=== PATIENT | female | born 1995 | race American Indian/Alaskan Native ===

== ENCOUNTER 2017-12-07 06:22 | Emergency (ER) | payer MEDICAID ==
[2017-12-07 07:24] VITALS: BP 114/75
[2017-12-07 08:21] LABS: Basophils % (Auto) 0.1 % (0.0-1.8); Eosinophils # (Auto) 0.1 K/mm3 (0.0-0.4); Eosinophils % (Auto) 2.1 % (0.0-4.3); Hematocrit 37.5 % (30.3-42.9); Hemoglobin 12.3 gm/dl (10.1-14.3); Lymphocytes # (Auto) 0.8 K/mm3 (1.2-5.4); Lymphocytes % (Auto) 27.5 % (13.4-35.0); Mean Corpuscular HGB Conc 33 % (30-34); Mean Corpuscular Hemoglobin 27 pg (28-32); Mean Corpuscular Volume 83 fl (79-97); Monocytes # (Auto) 0.3 K/mm3 (0.0-0.8); Platelet Count 219 K/mm3 (140-440); Red Blood Count 4.51 M/mm3 (3.65-5.03); Red Cell Distribution Width 15.4 % (13.2-15.2)
[2017-12-07 08:37] LABS: BUN/Creatinine Ratio 13; Blood Urea Nitrogen 9 mg/dL (7-17); Calcium 9.2 mg/dL (8.4-10.2); Hemolysis Index 6
== END 2017-12-07 12:00 | disposition left against medical advice (07) ==
LOC: ED 06:22
DX: R10.9 Unspecified abdominal pain (principal); Z79.899 Other long term (current) drug therapy; Z53.21 Procedure and treatment not carried out due to patient leaving prior to being seen by health care provider
CPT/HCPCS: 36415; 80048; 84703; 85025; G0480; 80320

== ENCOUNTER 2019-12-19 07:31 | Emergency (ER) | payer MEDICAID ==
[2019-12-19 08:00] VITALS: BP 109/61
[2019-12-19] MEDS ORDERED: ACETAMINOPHEN 325 MG TAB PO ONE (08:01)
[2019-12-19] MEDS ORDERED: IBUPROFEN 400 MG TAB PO ONE (08:01)
--- NOTE | 2019-12-19 08:06 | Emergency Department Report ---
ED General Adult HPI - General Chief complaint: Chest Pain Stated complaint: CHEST PAIN Time Seen by Provider: 12/19/19 07:34 Source: patient, EMS ( EMS documentation not available at time of chart dictation ), RN notes reviewed Mode of arrival: Ambulatory Limitations: No Limitations - History of Present Illness Initial comments: During the entire history and physical examination, I am chaperoned by ER program clerk/registration; Tiffany Dilloneverdanielle The patient is a 24-year-old female, [id number], who is not known to myself previously, she does not have a primary care doctor, and she states that she is not . She presents to the ER with a complaint of throbbing left- sided chest wall pain, constant, present for 4 hours. The pain is throbbing and sharp, constant, increases with palpation, range of motion, decreases with rest, and "rubbing on the pain." No recent aspirin consumption, no oral contraceptive use, denies DVT and pulmonary embolism risk factors. Denies additional complaints at this time. There is no vomiting, diaphoresis, exertional shortness of breath. No recent aspirin consumption. No family history of DVT, pulmonary embolism, or cardiac disease that she is aware of. -: Gradual, hour(s) Location: chest Radiation: extremity Quality: other Consistency: other Improves with: other Worsens with: other Associated Symptoms: other - Related Data Allergies Allergy/AdvReac Type Severity Reaction Status Date / Time Penicillins Allergy Hives Verified 12/07/17 07:22 ED Review of Systems ROS: Stated complaint: CHEST PAIN Other details as noted in HPI Constitutional: denies: fever Eyes: denies: eye discharge ENT: denies: congestion Respiratory: denies: wheezing Cardiovascular: chest pain (Left-sided reproducible chest wall pain). denies: syncope Gastrointestinal: denies: nausea, vomiting, diarrhea Genitourinary: as per HPI Musculoskeletal: as per HPI, myalgia Skin: as per HPI Neurological: as per HPI Psychiatric: as per HPI Hematological/Lymphatic: as per HPI ED Past Medical Hx - Past Medical History Previous Medical History?: No - Surgical History Past Surgical History?: Yes Additional Surgical History: c/s - Social History Smoking Status: Never Smoker Substance Use Type: None ED Physical Exam - General Limitations: No Limitations General appearance: alert, in no apparent distress - Head Head exam: Present: atraumatic, normocephalic - Eye Eye exam: Present: normal appearance, EOMI. Absent: nystagmus - ENT ENT exam: Present: normal exam, normal orophraynx, mucous membranes moist, normal external ear exam - Neck Neck exam: Present: normal inspection, full ROM. Absent: tenderness, meningismus - Respiratory Respiratory exam: Present: normal lung sounds bilaterally, chest wall tenderness, other (There is reproducible left-sided chest wall tenderness. There is no redness, pus or streaking. There is no crepitus. There is no breast redness, pus or streaking. Chaperoned by ER entry clerk Tiffany Quarles). Absent: respiratory distress - Cardiovascular Cardiovascular Exam: Present: regular rate, normal rhythm, normal heart sounds. Absent: bradycardia, tachycardia, irregular rhythm, systolic murmur, diastolic murmur, rubs, gallop - GI/Abdominal GI/Abdominal exam: Present: soft, normal bowel sounds. Absent: distended, tenderness, guarding, rebound, rigid, pulsatile mass - Extremities Exam Extremities exam: Present: normal inspection, full ROM, other (2+ pulses noted in the bilateral upper and lower extremities. There is no palpable cord. negative Homans sign. Muscular compartments are soft. The pelvis is stable.). Absent: pedal edema, calf tenderness - Back Exam Back exam: Present: normal inspection. Absent: tenderness, CVA tenderness (R), CVA tenderness (L), paraspinal tenderness, vertebral tenderness - Neurological Exam Neurological exam: Present: alert, normal gait, other (There is no facial droop. The tongue is midline. Extraocular movements are intact bilaterally. There is 5 out of 5 strength in bilateral upper and lower extremities. Sensation is intact to light touch bilateral upper and lower extremities. There is a normal gait.) - Psychiatric Psychiatric exam: Present: normal affect, normal mood - Skin Skin exam: Present: warm, dry, intact, normal color. Absent: rash ED Course Vital Signs 12/19/19 07:43 Temperature 98 F Pulse Rate 84 Respiratory 16 Rate Blood Pressure 109/61 O2 Sat by Pulse 96 Oximetry ED Medical Decision Making - Lab Data Vital Signs 12/19/19 07:43 Temperature 98 F Pulse Rate 84 Respiratory 16 Rate Blood Pressure 109/61 O2 Sat by Pulse 96 Oximetry - EKG Data -: EKG Interpreted by [place] EKG shows normal: sinus rhythm, axis, intervals, QRS complexes, ST-T waves Rate: normal - EKG Data When compared to previous EKG there are: previous EKG unavailable Interpretation: normal EKG - Medical Decision Making Differential diagnosis, including but not limited to: Costochondritis Assessment and plan: 24-year-old female, [id number], with no DVT or pulmonary embolism risk factors, who is low risk by Wells criteria, perc negative, with nontraumatic reproducible left-sided chest wall pain, and unremarkable EKG. She is otherwise afebrile with reassuring vital signs, in no acute distress. Her physical examination is unremarkable, with the exception of reproducible chest wall pain. She is quite young, and does not endorse any vascular risk factors. This is most likely costochondritis. Critical care attestation.: If time is entered above; I have spent that time in minutes in the direct care of this critically ill patient, excluding procedure time. ED Disposition Clinical Impression: Chest wall pain Disposition: DC-01 TO HOME OR SELFCARE Is pt being admited?: No Does the pt Need Aspirin: No Condition: Stable Additional Instructions: Rest, avoid heavy lifting, and avoid strenuous physical activities. Participate in lifting and physical activities as tolerated. Patient may take ibuprofen [id number], 600 mg with food, every 6 hours, alternating with Tylenol, 650 mg by mouth, every 4-6 hours, as needed for pain. Recommend follow-up with a primary care doctor within the next 2 weeks. Please return to the emergency room right away with new, worsened or different symptoms, or symptoms not present on the initial emergency room evaluation. Referrals: [facility] [Provider Group] - 7-10 days [facility] [Provider Group] - 7-10 days
== END 2019-12-19 09:06 | disposition home or self-care (01) ==
LOC: ED 07:31
DX: R07.89 Other chest pain (principal)
CPT/HCPCS: 93005; 93010; 99283

== ENCOUNTER 2020-08-15 01:09 | Emergency (ER) | payer MEDICAID ==
[2020-08-15 02:48] LABS: Alanine Aminotransferase 15 units/L (7-56); Albumin 4.3 g/dL (3.9-5); Basophils % (Auto) 0.4 % (0.0-1.8); Blood Urea Nitrogen 7 mg/dL (7-17); Eosinophils % (Auto) 0.7 % (0.0-4.3); Hematocrit 36.3 % (30.3-42.9); Hemoglobin 12.3 gm/dl (10.1-14.3); Hemolysis Index 3; Lymphocytes # (Auto) 1.8 K/mm3 (1.2-5.4); Lymphocytes % (Auto) 27.7 % (13.4-35.0); Mean Corpuscular HGB Conc 34 % (30-34); Mean Corpuscular Volume 86 fl (79-97); Monocytes # (Auto) 0.5 K/mm3 (0.0-0.8); Monocytes % (Auto) 8.2 % (0.0-7.3); Platelet Count 234 K/mm3 (140-440); Red Blood Count 4.22 M/mm3 (3.65-5.03); Red Cell Distribution Width 13.7 % (13.2-15.2)
[2020-08-15 02:54] LABS: BUN/Creatinine Ratio 10
[2020-08-15 03:00] LABS: Bacteria,Urine 1+ /HPF (Negative); Bilirubin,Urine NEG (Negative); Blood,Urine LG (Negative); Color,Urine Yellow (Yellow); Mucus,Urine 3+ /HPF; Urobilinogen,Urine < 2.0 mg/dL (<2.0)
[2020-08-15 03:09] LABS: RBC,Urine > 182.0 /HPF (0.0-6.0); WBC,Urine > 182.0 /HPF (0.0-6.0)
--- NOTE | 2020-08-15 03:10 | Emergency Department Report ---
ED Abdominal Pain HPI - General Chief Complaint: Abdominal Pain Stated Complaint: ABDOMINAL/VAGINAL PAIN Time Seen by Provider: 08/15/20 02:45 Source: patient Mode of arrival: Ambulatory Limitations: No Limitations - History of Present Illness Initial Comments: 25-year-old female presents to ED with abdominal pain. Patient reports lower abdominal pain, onset 4 PM on yesterday. Patient states she has been having intermittent bilateral flank pain for "a few weeks."Patient denies any fever, nausea, vomiting, diarrhea. Patient reports some urinary frequency and dysuria. She denies any vaginal bleeding or discharge. MD Complaint: abdominal pain -: This afternoon Location: suprapubic Radiation: none Migration to: no migration Severity: moderate Quality: cramping Consistency: intermittent Improves With: nothing Worsens With: nothing Associated Symptoms: dysuria. denies: nausea, vomiting, diarrhea, fever - Related Data Previous Rx's Medication Instructions Recorded Last Taken Type Ciprofloxacin HCl [Ciprofloxacin 500 mg PO Q12HR 7 Days #14 tab 08/15/20 Unknown Rx TAB] Naproxen [Naprosyn] 500 mg PO BID #20 tablet 08/15/20 Unknown Rx traMADoL [Ultram] 50 mg PO Q6HR PRN #7 tablet 08/15/20 Unknown Rx Allergies Allergy/AdvReac Type Severity Reaction Status Date / Time Penicillins Allergy Hives Verified 12/07/17 07:22 ED Review of Systems ROS: Stated complaint: ABDOMINAL/VAGINAL PAIN Other details as noted in HPI Comment: All other systems reviewed and negative Constitutional: denies: fever Gastrointestinal: abdominal pain. denies: nausea, vomiting, diarrhea Genitourinary: dysuria, frequency. denies: hematuria, discharge Musculoskeletal: back pain ED Past Medical Hx - Past Medical History Previous Medical History?: No - Surgical History Past Surgical History?: Yes Additional Surgical History: c/s - Social History Smoking Status: Former Smoker Substance Use Type: Alcohol - Medications Home Medications: Home Medications Medication Instructions Recorded Confirmed Last Taken Type Ciprofloxacin HCl [Ciprofloxacin 500 mg PO Q12HR 7 Days #14 tab 08/15/20 Unknown Rx TAB] Naproxen [Naprosyn] 500 mg PO BID #20 tablet 08/15/20 Unknown Rx traMADoL [Ultram] 50 mg PO Q6HR PRN #7 tablet 08/15/20 Unknown Rx ED Physical Exam - General Limitations: No Limitations General appearance: alert, in no apparent distress - Head Head exam: Present: atraumatic, normocephalic - Eye Eye exam: Present: normal appearance, EOMI - ENT ENT exam: Present: mucous membranes moist - Neck Neck exam: Present: normal inspection - Respiratory Respiratory exam: Present: normal lung sounds bilaterally. Absent: respiratory distress - Cardiovascular Cardiovascular Exam: Present: normal rhythm, tachycardia - GI/Abdominal GI/Abdominal exam: Present: soft, tenderness (Suprapubic). Absent: distended - Extremities Exam Extremities exam: Present: normal inspection - Back Exam Back exam: Present: CVA tenderness (R), CVA tenderness (L) - Neurological Exam Neurological exam: Present: alert, oriented X3 - Psychiatric Psychiatric exam: Present: normal affect, normal mood - Skin Skin exam: Present: warm, dry, intact, normal color ED Course Vital Signs 08/15/20 01:16 Temperature 98.1 F Pulse Rate 110 H Respiratory 20 Rate Blood Pressure 121/86 O2 Sat by Pulse 96 Oximetry ED Medical Decision Making - Lab Data Result diagrams: 08/15/20 02:07 08/15/20 02:07 - Radiology Data Radiology results: report reviewed, image reviewed - Medical Decision Making 25-year-old female presents to ED with urinary symptoms and back pain. CVA tenderness on exam. Patient afebrile, however slightly tachycardic upon arrival. WBC is normal. UA shows 1+ bacteria with WBC clumps and RBCs present. CT abdomen pelvis negative for any acute abnormalities. Will treat patient for acute pyelonephritis. IV fluids, Levaquin, and Toradol given here in the ED. Patient is feeling much better at this time. Will discharge home with prescriptions. Outpatient follow-up advised. Return precautions given. - Differential Diagnosis UTI, pyelonephritis, kidney stone Critical care attestation.: If time is entered above; I have spent that time in minutes in the direct care of this critically ill patient, excluding procedure time. ED Disposition Clinical Impression: Acute pyelonephritis Disposition: TO HOME OR SELFCARE Is pt being admited?: No Condition: Stable Instructions: Acute Pyelonephritis (ED) Prescriptions: Ciprofloxacin HCl [Ciprofloxacin TAB] 500 mg PO Q12HR 7 Days #14 tab Referrals: PRIMARY CARE, [Primary Care Provider] - 3-5 Days [facility] [Provider Group] - 3-5 Days Time of Disposition: 05:01
[2020-08-15] MEDS ORDERED: SODIUM CHLORIDE 0.9% 1000 ML 1,000 ML IV ONE (03:30)
[2020-08-15] MEDS ORDERED: KETOROLAC 30 MG/1 ML INJ IV ONE (03:30)
--- NOTE | 2020-08-15 04:11 | Cat Scan Report ---
CT ABDOMEN AND PELVIS WITHOUT CONTRAST INDICATION / CLINICAL INFORMATION: flank pain. TECHNIQUE: Axial CT images were obtained through the abdomen and pelvis without IV contrast. All CT scans at this location are performed using CT dose reduction for ALARA by means of automated exposure control. COMPARISON: None available. FINDINGS: LOWER CHEST: No significant abnormality. LIVER: No significant abnormality. GALLBLADDER: Several tiny calcified gallstones. No wall thickening or inflammation. BILE DUCTS: No significant abnormality. PANCREAS: No significant abnormality. SPLEEN: No significant abnormality. ADRENALS: No significant abnormality. RIGHT KIDNEY / URETER: No significant abnormality. LEFT KIDNEY / URETER: No significant abnormality. STOMACH / SMALL BOWEL: No significant abnormality. COLON: No significant abnormality. APPENDIX: Not visualized. PERITONEUM: No free fluid. No free air. No fluid collection. LYMPH NODES: No significant adenopathy. AORTA / ARTERIES: No significant abnormality. IVC / VEINS: No significant abnormality. URINARY BLADDER: No significant abnormality. REPRODUCTIVE ORGANS: No significant abnormality. ADDITIONAL FINDINGS: None. SKELETAL SYSTEM: Thoracolumbar fusion hardware. No acute osseous abnormality. IMPRESSION: 1. No acute process in the abdomen or pelvis. 2. No urinary tract stones or hydronephrosis. Signer Name: Rosa Lal MD Signed: 08/15/2020 4:06 AM Workstation Name: [id number]
[2020-08-15] MEDS ORDERED: levoFLOXacin 500 MG TAB PO ONE (04:57)
[2020-08-15 05:34] VITALS: BP 124/86
== END 2020-08-15 05:40 | disposition home or self-care (01) ==
LOC: ED 01:09
DX: N10 Acute pyelonephritis (principal); Z98.890 Other specified postprocedural states; Z87.891 Personal history of nicotine dependence; Z79.2 Long term (current) use of antibiotics; Z79.899 Other long term (current) drug therapy; Z88.0 Allergy status to penicillin
CPT/HCPCS: 36415; 74176; 80053; 81001; 84703; 85025; 96361; 96374; 99284; J1885; J7030

== ENCOUNTER 2020-11-20 19:21 | Emergency (ER) | payer MEDICAID ==
[2020-11-20 19:30] VITALS: BP 134/78
[2020-11-20] MEDS ORDERED: SODIUM CHLORIDE 0.9% 1000 ML 1,000 ML IV ONE ×2 (19:37)
[2020-11-20] MEDS ORDERED: FAMOTIDINE 20 MG/2 ML INJ IV ONE (19:37)
[2020-11-20] MEDS ORDERED: ACETAMINOPHEN 500 MG TAB PO ONE (19:37)
[2020-11-20] MEDS ORDERED: ONDANSETRON 4 MG/2 ML INJ IV ONE (19:37)
--- NOTE | 2020-11-20 20:02 | Event Note ---
ED Screening Note Date of service: 11/20/20 ED Screening Note: Patient is a 25-year-old -[place] female with no past medical history presents to the ED with complaint of acute onset persistent diffuse body aches and pains, nasal and sinus congestion, sore throat, severe headache, fever and chills, generalized weakness, pleuritic chest pain, persistent dry cough, nausea and vomiting and lack of appetite for the last 2 days. Patient states that no one else at home is had similar symptoms. Patient also states that the last time she had nausea and vomiting was 30 minutes prior to arrival in the ED, and that she has not been able to keep anything down. Patient denies chest pain, dizziness, syncope, dysuria, urinary frequency and urgency, vaginal bleeding, vaginal discharge, abdominal pain, change in vision or palpitations. This initial assessment/diagnostic orders/clinical plan/treatment(s) is/are s ubject to change based on patients health status, clinical progression and re- assessment by fellow clinical providers in the ED. Further treatment and workup at subsequent clinical providers discretion. Patient/guardian urged not to elope from the ED as their condition may be serious if not clinically assessed and managed. Initial orders include: CBC, CMP, UA, rapid strep, rapid influenza, chest x-ray, Tylenol, normal saline, blood cultures
[2020-11-20 20:23] LABS: Basophils % (Auto) 0.1 % (0.0-1.8); Hematocrit 35.5 % (30.3-42.9); Lymphocytes # (Auto) 0.6 K/mm3 (1.2-5.4); Lymphocytes % (Auto) 6.9 % (13.4-35.0); Mean Corpuscular HGB Conc 34 % (30-34); Mean Corpuscular Volume 87 fl (79-97); Monocytes # (Auto) 0.4 K/mm3 (0.0-0.8); Monocytes % (Auto) 5.3 % (0.0-7.3); Platelet Count 194 K/mm3 (140-440); Red Blood Count 4.06 M/mm3 (3.65-5.03); Red Cell Distribution Width 14.4 % (13.2-15.2)
[2020-11-20] MEDS ORDERED: ONDANSETRON 4 MG ODT TAB PO ONE (20:27)
[2020-11-20] MEDS ORDERED: IBUPROFEN 800 MG TAB PO ONE (20:27)
--- NOTE | 2020-11-20 20:29 | Emergency Department Report ---
ED Fever HPI - General Chief Complaint: Fever Stated Complaint: FEVER/BODYACHE/SORE THROAT PUI?: Yes Time Seen by Provider: 11/20/20 20:27 Source: patient Exam Limitations: no limitations - History of Present Illness Initial Comments: CC: "I just feel horrible." HPI: THis is a 25 yo female without significant past medical history who presents with ED Review of Systems ROS: Stated complaint: FEVER/BODYACHE/SORE THROAT Other details as noted in HPI ED Past Medical Hx - Past Medical History Previous Medical History?: No - Surgical History Past Surgical History?: Yes Hx Appendectomy: Yes Additional Surgical History: . Spine surgery. - Social History Smoking Status: Never Smoker Substance Use Type: None - Medications Home Medications: Home Medications Medication Instructions Recorded Confirmed Last Taken Type Ciprofloxacin HCl [Ciprofloxacin 500 mg PO Q12HR 7 Days #14 tab 08/15/20 Unknown Rx TAB] Naproxen [Naprosyn] 500 mg PO BID #20 tablet 08/15/20 Unknown Rx traMADoL [Ultram] 50 mg PO Q6HR PRN #7 tablet 08/15/20 Unknown Rx ED Physical Exam - General Limitations: No Limitations ED Course Vital Signs 11/20/20 19:28 Temperature 100.7 F H Pulse Rate 126 H Respiratory 20 Rate Blood Pressure 134/78 O2 Sat by Pulse 95 Oximetry ED Medical Decision Making - Lab Data Result diagrams: 11/20/20 19:55 Critical care attestation.: If time is entered above; I have spent that time in minutes in the direct care of this critically ill patient, excluding procedure time. ED Disposition Clinical Impression: Suspected COVID-19 virus infection Disposition: - TO HOME OR SELFCARE Is pt being admited?: No Does the pt Need Aspirin: No Condition: Stable Instructions: COVID-19 Referrals: YESSI JEFFRIES MD [Staff Physician] - as needed
[2020-11-20 20:47] LABS: Alanine Aminotransferase 24 units/L (7-56); Albumin 4.1 g/dL (3.9-5); BUN/Creatinine Ratio 13; Blood Urea Nitrogen 10 mg/dL (7-17); Calcium 9.3 mg/dL (8.4-10.2); Hemolysis Index 4
--- NOTE | 2020-11-20 21:00 | Emergency Department Report ---
ED Fever HPI - General Chief Complaint: Fever Stated Complaint: FEVER/BODYACHE/SORE THROAT PUI?: No Time Seen by Provider: 11/20/20 20:27 Source: patient Exam Limitations: no limitations - History of Present Illness Initial Comments: CC: "I feel horrible." HPI: THis is a 25 yo female without significant past medical history who presents with one day of symptoms: fever, body aches, headache, sore throat, chest pain, fatigue. SHe denies loss of smell or taste. No sick contacts. She does not work. She has a roommate who works in an [place]. mild chest tightness, central. Timing/Duration: constant Fever Severity/Quality: greater than 100.5 F Fever Therapy PROGRAM ARRANGER: none Associated Symptoms: cough, headache, muscle aches, sore throat, other (chest pain) ED Review of Systems ROS: Stated complaint: FEVER/BODYACHE/SORE THROAT Other details as noted in HPI Comment: All other systems reviewed and negative Constitutional: chills, fever, malaise ENT: throat pain Respiratory: cough Cardiovascular: chest pain Gastrointestinal: denies: abdominal pain, nausea, vomiting, diarrhea ED Past Medical Hx - Past Medical History Previous Medical History?: No - Surgical History Past Surgical History?: Yes Hx Appendectomy: Yes Additional Surgical History: . Spine surgery. - Social History Smoking Status: Never Smoker Substance Use Type: None - Medications Home Medications: Home Medications Medication Instructions Recorded Confirmed Last Taken Type Ciprofloxacin HCl [Ciprofloxacin 500 mg PO Q12HR 7 Days #14 tab 08/15/20 Unknown Rx TAB] Naproxen [Naprosyn] 500 mg PO BID #20 tablet 08/15/20 Unknown Rx traMADoL [Ultram] 50 mg PO Q6HR PRN #7 tablet 08/15/20 Unknown Rx ED Physical Exam - General Limitations: No Limitations General appearance: alert, in no apparent distress - Head Head exam: Present: atraumatic, normocephalic - Eye Eye exam: Present: normal appearance - ENT ENT exam: Present: mucous membranes moist - Neck Neck exam: Present: normal inspection, full ROM - Respiratory Respiratory exam: Present: normal lung sounds bilaterally. Absent: respiratory distress, wheezes, rales, rhonchi - Cardiovascular Cardiovascular Exam: Present: regular rate, normal rhythm, normal heart sounds. Absent: systolic murmur, diastolic murmur, rubs, gallop - GI/Abdominal GI/Abdominal exam: Present: soft, normal bowel sounds. Absent: distended, tenderness, guarding, rebound - Extremities Exam Extremities exam: Present: normal inspection - Neurological Exam Neurological exam: Present: alert, oriented X3 - Psychiatric Psychiatric exam: Present: normal affect, normal mood - Skin Skin exam: Present: warm, dry, intact, normal color. Absent: rash ED Course Vital Signs 11/20/20 19:28 Temperature 100.7 F H Pulse Rate 126 H Respiratory 20 Rate Blood Pressure 134/78 O2 Sat by Pulse 95 Oximetry ED Medical Decision Making - Lab Data Result diagrams: 11/20/20 19:55 11/20/20 19:55 Laboratory Results - last 24 hr 11/20/20 11/20/20 11/20/20 19:55 19:55 19:55 WBC 8.0 RBC 4.06 Hgb 12.0 Hct 35.5 MCV 87 MCH 30 MCHC 34 RDW 14.4 Plt Count 194 Lymph % (Auto) 6.9 L [place] % (Auto) 5.3 Eos % (Auto) 0.0 Baso % (Auto) 0.1 Lymph # (Auto) 0.6 L [place] # (Auto) 0.4 Eos # (Auto) 0.0 Baso # (Auto) 0.0 Seg Neutrophils % 87.7 H Seg Neutrophils # 7.1 Estimated GFR > 60 BUN/Creatinine Ratio 13 Lactic Acid Albumin/Globulin Ratio 1.4 HCG, Qual Negative 11/20/20 19:55 WBC RBC Hgb Hct MCV MCH MCHC RDW Plt Count Lymph % (Auto) [place] % (Auto) Eos % (Auto) Baso % (Auto) Lymph # (Auto) [place] # (Auto) Eos # (Auto) Baso # (Auto) Seg Neutrophils % Seg Neutrophils # Estimated GFR BUN/Creatinine Ratio Lactic Acid 1.10 Albumin/Globulin Ratio HCG, Qual - Medical Decision Making suspected COVID 19 infection, patient is nontoxic appearing, normal oxygen saturation, CBC WNL, normal lactic acid level, negative test dc'd home with verbal and written education Critical care attestation.: If time is entered above; I have spent that time in minutes in the direct care of this critically ill patient, excluding procedure time. ED Disposition Clinical Impression: Suspected COVID-19 virus infection Disposition: DC TO HOME OR SELFCARE Is pt being admited?: No Condition: Stable Instructions: COVID-19 Referrals: YESSI JEFFRIES MD [Staff Physician] - as needed
== END 2020-11-20 20:55 | disposition home or self-care (01) ==
LOC: ED 19:21
DX: R50.9 Fever, unspecified (principal); R51.9 Headache, unspecified; J02.9 Acute pharyngitis, unspecified; Z20.828 Contact with and (suspected) exposure to other viral communicable diseases; Z90.49 Acquired absence of other specified parts of digestive tract; Z98.890 Other specified postprocedural states
CPT/HCPCS: 36415; 80053; 82140; 84703; 85025; 99283; Q0162

== ENCOUNTER 2020-12-06 19:25 | Emergency (ER) | payer MEDICAID ==
[2020-12-06] MEDS ORDERED: SODIUM CHLORIDE 0.9% 1000 ML 1,000 ML IV ONE (19:52)
[2020-12-06] MEDS ORDERED: ONDANSETRON 4 MG/2 ML INJ IV ONE (19:52)
--- NOTE | 2020-12-06 19:54 | Emergency Department Report ---
Blank Doc - Documentation Documentation: 25-year-old -[place] female with past medical history of gallbladder d richard presents emerged department complaining of flareup of repetitive vomiting associated with diarrhea of unknown etiology states that the pain is in her lower abdomen and pelvic region and radiates around to the right flank but reports no no dysuria but may have a suspicion of being . This initial assessment/diagnostic orders/clinical plan/treatment(s) is/are subject to change based on patients health status, clinical progression and re- assessment by fellow clinical providers in the ED. Further treatment and workup at subsequent clinical providers discretion. Patient/guardian urged not to elope from the ED as their condition may be serious if not clinically assessed and managed. Initial orders include: labs and urine.
[2020-12-06] MEDS ORDERED: ONDANSETRON 4 MG ODT TAB PO STA (20:18)
[2020-12-06 20:26] LABS: Basophils % (Auto) 0.1 % (0.0-1.8); Eosinophils # (Auto) 0.1 K/mm3 (0.0-0.4); Eosinophils % (Auto) 1.2 % (0.0-4.3); Hematocrit 39.9 % (30.3-42.9); Hemoglobin 13.5 gm/dl (10.1-14.3); Lymphocytes # (Auto) 1.2 K/mm3 (1.2-5.4); Lymphocytes % (Auto) 18.8 % (13.4-35.0); Mean Corpuscular HGB Conc 34 % (30-34); Mean Corpuscular Volume 87 fl (79-97); Monocytes # (Auto) 0.5 K/mm3 (0.0-0.8); Monocytes % (Auto) 7.9 % (0.0-7.3); Platelet Count 318 K/mm3 (140-440); Red Blood Count 4.57 M/mm3 (3.65-5.03); Red Cell Distribution Width 13.9 % (13.2-15.2)
[2020-12-06 20:52] LABS: Alanine Aminotransferase 15 units/L (7-56); Albumin 4.9 g/dL (3.9-5); BUN/Creatinine Ratio 13; Blood Urea Nitrogen 10 mg/dL (7-17); Calcium 9.2 mg/dL (8.4-10.2); Hemolysis Index 1
[2020-12-06] MEDS ORDERED: MORPHINE 4 MG/1 ML INJ IV ONE ×2 (21:13→23:15)
--- NOTE | 2020-12-06 21:26 | Emergency Department Report ---
HPI - General Chief Complaint: Nausea/Vomiting/Diarrhea Time Seen by Provider: 12/06/20 20:54 - HPI HPI: This is a 25-year-old -[place] female presents to the emergency department with a complaint of a 4-day history of nausea, vomiting and diarrhea. The patient has also been having some lower abdominal sharp and aching abdominal pains. She denies any vaginal bleeding, vaginal discharge, dysuria, fever. She has not taken anything for her symptoms prior to presentation. The patient has a history of childhood seizures, "gallbladder problems" and has a previous history of an appendectomy, and spinal surgery. No recent travel or sick contacts at home. ED Past Medical Hx - Past Medical History Previous Medical History?: Yes Hx Seizures: Yes (x1 when 1yrs old) Additional medical history: gallbladder probs. pulmonary edema - Surgical History Past Surgical History?: Yes Hx Appendectomy: Yes Additional Surgical History: . Spine surgery. sinus - Social History Smoking Status: Never Smoker Substance Use Type: None - Medications Home Medications: Home Medications Medication Instructions Recorded Confirmed Last Taken Type Ciprofloxacin HCl [Ciprofloxacin 500 mg PO Q12HR 7 Days #14 tab 08/15/20 Unknown Rx TAB] Naproxen [Naprosyn] 500 mg PO BID #20 tablet 08/15/20 Unknown Rx traMADoL [Ultram] 50 mg PO Q6HR PRN #7 tablet 08/15/20 Unknown Rx Dicyclomine [Bentyl] 10 mg PO QID PRN #16 capsule 12/07/[address] [facility]/M-Cryst 100 mg PO Q12HR #14 capsule 12/07/20 Unknown Rx [Macrobid CAP] Ondansetron [Zofran Odt] 4 mg PO Q8HR PRN #14 tab.rapdis 12/07/20 Unknown Rx ED Review of Systems ROS: Stated complaint: NAUSEA/VOMITING Other details as noted in HPI Comment: All other systems reviewed and negative Constitutional: denies: chills, fever Eyes: denies: eye pain, vision change ENT: denies: ear pain, throat pain Respiratory: denies: cough, shortness of breath Cardiovascular: denies: chest pain, palpitations Gastrointestinal: abdominal pain, nausea, vomiting, diarrhea Genitourinary: denies: dysuria, discharge Musculoskeletal: denies: joint swelling, arthralgia Skin: denies: rash, lesions Neurological: denies: headache, weakness Physical Exam - Physical Exam Vital Signs: Vital Signs 12/06/20 19:33 Temperature 98.3 F Pulse Rate 121 H Respiratory 17 Rate Blood Pressure 98/74 O2 Sat by Pulse 98 Oximetry Physical Exam: GENERAL: The patient is well-developed well-nourished. HENT: Normocephalic. Atraumatic. Patient has moist mucous membranes. EYES: Extraocular motions are intact. NECK: Supple. Trachea is midline. CHEST/LUNGS: Clear to auscultation. There is no respiratory distress noted. HEART/CARDIOVASCULAR: Regular. There is mild tachycardia. There is no murmur. ABDOMEN: Abdomen is soft. Lower abdominal tenderness to palpation. No guarding. Patient has normal bowel sounds. There is no abdominal distention. SKIN: Skin is warm and dry. NEURO: The patient is awake, alert, and oriented. The patient is cooperative. The patient has no focal neurologic deficits. Normal speech. MUSCULOSKELETAL: There is no tenderness or deformity. There is no limitation range of motion. ED Course Vital Signs 12/06/20 19:33 Temperature 98.3 F Pulse Rate 121 H Respiratory 17 Rate Blood Pressure 98/74 O2 Sat by Pulse 98 Oximetry ED Medical Decision Making - Lab Data Result diagrams: 12/06/20 20:15 12/06/20 20:15 Lab Results 12/06/20 12/06/20 12/06/20 Range/Units 20:15 20:15 20:15 WBC 6.5 (4.5-11.0) K/mm3 RBC 4.57 (3.65-5.03) M/mm3 Hgb 13.5 (10.1-14.3) gm/dl Hct 39.9 (30.3-42.9) % MCV 87 (79-97) fl MCH 30 (28-32) pg MCHC 34 (30-34) % RDW 13.9 (13.2-15.2) % Plt Count 318 (140-440) K/mm3 Lymph % (Auto) 18.8 (13.4-35.0) % [facility] % (Auto) 7.9 H (0.0-7.3) % Eos % (Auto) 1.2 (0.0-4.3) % Baso % (Auto) 0.1 (0.0-1.8) % Lymph # (Auto) 1.2 (1.2-5.4) K/mm3 [facility] # (Auto) 0.5 (0.0-0.8) K/mm3 Eos # (Auto) 0.1 (0.0-0.4) K/mm3 Baso # (Auto) 0.0 (0.0-0.1) K/mm3 Seg Neutrophils % 72.0 H (40.0-70.0) % Seg Neutrophils # 4.7 (1.8-7.7) K/mm3 Sodium 136 L (137-145) mmol/L Potassium 3.7 (3.6-5.0) mmol/L Chloride 101.0 (98-107) mmol/L Carbon Dioxide 25 (22-30) mmol/L Anion Gap 14 mmol/L BUN 10 (7-17) mg/dL Creatinine 0.8 (0.6-1.2) mg/dL Estimated GFR > 60 ml/min BUN/Creatinine Ratio 13 % Glucose 94 (65-100) mg/dL Calcium 9.2 (8.4-10.2) mg/dL Total Bilirubin 0.30 (0.1-1.2) mg/dL AST 17 (5-40) units/L ALT 15 (7-56) units/L Alkaline Phosphatase 81 (35-129) units/L Total Protein 8.2 (6.3-8.2) g/dL Albumin 4.9 (3.9-5) g/dL Albumin/Globulin Ratio 1.5 % Lipase 37 (13-60) units/L HCG, Qual Negative (Negative) Urine Color (Yellow) Urine Turbidity (Clear) Urine pH (5.0-7.0) Ur Specific [place] (1.003-1.030) Urine Protein (Negative) mg/dL Urine Glucose (UA) (Negative) mg/dL Urine Ketones (Negative) mg/dL Urine Blood (Negative) Urine Nitrite (Negative) Urine Bilirubin (Negative) Urine Urobilinogen (<2.0) mg/dL Ur Leukocyte Esterase (Negative) Urine WBC (Auto) (0.0-6.0) /HPF Urine RBC (Auto) (0.0-6.0) /HPF U Epithel Cells (Auto) (0-13.0) /HPF Urine Bacteria (Auto) (Negative) /HPF Urine Mucus /HPF 02/15/21 Range/Units 21:13 WBC (4.5-11.0) K/mm3 RBC (3.65-5.03) M/mm3 Hgb (10.1-14.3) gm/dl Hct (30.3-42.9) % MCV (79-97) fl MCH (28-32) pg MCHC (30-34) % RDW (13.2-15.2) % Plt Count (140-440) K/mm3 Lymph % (Auto) (13.4-35.0) % [facility] % (Auto) (0.0-7.3) % Eos % (Auto) (0.0-4.3) % Baso % (Auto) (0.0-1.8) % Lymph # (Auto) (1.2-5.4) K/mm3 [facility] # (Auto) (0.0-0.8) K/mm3 Eos # (Auto) (0.0-0.4) K/mm3 Baso # (Auto) (0.0-0.1) K/mm3 Seg Neutrophils % (40.0-70.0) % Seg Neutrophils # (1.8-7.7) K/mm3 Sodium (137-145) mmol/L Potassium (3.6-5.0) mmol/L Chloride (98-107) mmol/L Carbon Dioxide (22-30) mmol/L Anion Gap mmol/L BUN (7-17) mg/dL Creatinine (0.6-1.2) mg/dL Estimated GFR ml/min BUN/Creatinine Ratio % Glucose (65-100) mg/dL Calcium (8.4-10.2) mg/dL Total Bilirubin (0.1-1.2) mg/dL AST (5-40) units/L ALT (7-56) units/L Alkaline Phosphatase (35-129) units/L Total Protein (6.3-8.2) g/dL Albumin (3.9-5) g/dL Albumin/Globulin Ratio % Lipase (13-60) units/L HCG, Qual (Negative) Urine Color Yellow (Yellow) Urine Turbidity Cloudy (Clear) Urine pH 5.0 (5.0-7.0) Ur Specific [place] 1.029 (1.003-1.030) Urine Protein 100 mg/dl (Negative) mg/dL Urine Glucose (UA) Neg (Negative) mg/dL Urine Ketones Neg (Negative) mg/dL Urine Blood Neg (Negative) Urine Nitrite Neg (Negative) Urine Bilirubin Neg (Negative) Urine Urobilinogen < 2.0 (<2.0) mg/dL Ur Leukocyte Esterase Sm (Negative) Urine WBC (Auto) 18.0 H (0.0-6.0) /HPF Urine RBC (Auto) 4.0 (0.0-6.0) /HPF U Epithel Cells (Auto) 54.0 H (0-13.0) /HPF Urine Bacteria (Auto) 1+ (Negative) /HPF Urine Mucus 2+ /HPF - Radiology Data Radiology results: image reviewed interpreted by me: Abdominal x-ray shows nonspecific nonobstructive bowel gas. - Medical Decision Making This patient presents to the emergency department with a complaint of nausea, vomiting, diarrhea and lower abdominal pain. The abdomen is soft, nondistended and nontoxic in appearance, but the patient does have some mild lower abdominal tenderness to palpation. Patient's labs have been unremarkable including CBC, CMP, lipase, and the pat ient is not . Urinalysis shows a mild urinary tract infection. Patient was given IV fluid resuscitation, IV antiemetics and a dose of IV analgesia. She was reevaluated multiple times over multiple hours and appears improved. Patient was given some juice for an oral challenge and did not have any further vomiting. She did say that the oral challenge caused her to have some return of nausea so she was given a dose of Reglan. The patient then said that the Reglan was causing her to feel very jittery and she began specifically requesting benzodiazepines. This medication was added to her allergies/adverse reactions list. The patient was given some further IV fluid resuscitation and we continued to monitor. There were no signs of any angioedema, anaphylaxis, urticaria or any rash. The patient will be discharged home to follow-up with primary care and has also been given a referral for gastroenterology. She has been given a prescription for Bentyl and Zofran. She has been instructed to return to the closest emergency department with any worsening of her symptoms or with any acute distress. Critical Care Time: No Critical care attestation.: If time is entered above; I have spent that time in minutes in the direct care of this critically ill patient, excluding procedure time. ED Disposition Clinical Impression: Viral syndrome Nausea & vomiting Qualifiers: Vomiting type: unspecified Vomiting Intractability: non-intractable Qualified Code(s): R11.2 - Nausea with vomiting, unspecified Diarrhea Qualifiers: Diarrhea type: unspecified type Qualified Code(s): R19.7 - Diarrhea, unspecified UTI (urinary tract infection) Qualifiers: Urinary tract infection type: acute cystitis Hematuria presence: without hematuria Qualified Code(s): N30.00 - Acute cystitis without hematuria Abdominal pain Qualifiers: Abdominal location: lower abdomen, unspecified Qualified Code(s): R10.30 - Lower abdominal pain, unspecified Disposition: TO HOME OR SELFCARE Is pt being admited?: No Condition: Stable Instructions: Diarrhea, Adult, Abdominal Pain, Adult, Urinary Tract Infection, Adult, Viral Illness, Adult Additional Instructions: Increase your oral rehydration. Please follow-up with a primary care physician in the next few days. I am giving you a referral for [facility] to follow-up regarding your abdominal pains. Please take the medications as prescribed. Return to the emergency department with any worsening of your symptoms, new or concerning symptoms not addressed during this current emergency department visit, or with any acute distress. Prescriptions: Dicyclomine [Bentyl] 10 mg PO QID PRN #16 capsule PRN Reason: Pain , Severe (7-10) Nitrofurantoin [facility]/M-Cryst [Macrobid CAP] 100 mg PO Q12HR #14 capsule Ondansetron [Zofran Odt] 4 mg PO Q8HR PRN #14 tab.rapdis PRN Reason: Nausea Referrals: PRIMARY CARE [Primary Care Provider] - 3-5 Days [facility] [Provider Group] - 3-5 Days [facility] [Provider Group] - 3-5 Days Time of Disposition: 00:02
[2020-12-06 21:52] LABS: Bacteria,Urine 1+ /HPF (Negative); Bilirubin,Urine NEG (Negative); Blood,Urine NEG (Negative); Color,Urine Yellow (Yellow); Mucus,Urine 2+ /HPF; Urobilinogen,Urine < 2.0 mg/dL (<2.0)
--- NOTE | 2020-12-06 22:00 | XRay Report ---
ABDOMEN 1 VIEW INDICATION / CLINICAL INFORMATION: Abdominal pain, nausea, vomiting, diarrhea. Low back pain. COMPARISON: CT abdomen/pelvis dated 08/15/2020. FINDINGS: TUBES / LINES: None. BOWEL GAS PATTERN: No significant abnormality. FREE AIR / EXTRALUMINAL GAS: None seen. ADDITIONAL FINDINGS: Thoracolumbar Teresa rods are seen. There is mild to moderate S-shaped thora columbar scoliosis. IMPRESSION: 1. No significant abnormality. Signer Name: Wesley Umaña MD Signed: 12/06/2020 9:56 PM Workstation Name: [id number]
[2020-12-06 23:15] VITALS: BP 109/68
[2020-12-06] MEDS ORDERED: METOCLOPRAMIDE 10 MG/2 ML INJ ONE (23:31)
[2020-12-06] MEDS ORDERED: METOCLOPRAMIDE 10 MG/2 ML INJ IV ONE (23:31)
[2020-12-06] MEDS ORDERED: SODIUM CHLORIDE 0.9% 1000 ML 1,000 ML ONE (23:43)
== END 2020-12-07 00:29 | disposition home or self-care (01) ==
LOC: ED 19:25
DX: B34.9 Viral infection, unspecified (principal); N39.0 Urinary tract infection, site not specified; G40.909 Epilepsy, unspecified, not intractable, without status epilepticus; Z98.890 Other specified postprocedural states; Z79.899 Other long term (current) drug therapy; Z88.0 Allergy status to penicillin; Z88.1 Allergy status to other antibiotic agents; Z88.8 Allergy status to other drugs, medicaments and biological substances
CPT/HCPCS: 36415; 74019; 80053; 81001; 83690; 84703; 85025; 87086; 96361; 96374; 96375; 99284; J2270; J2405; J2765; J7030; Q0162

== ENCOUNTER 2020-12-07 01:03 | Emergency (ER) | payer MEDICAID ==
[2020-12-07 01:50] VITALS: BP 119/75
[2020-12-07] MEDS ORDERED: diphenhydrAMINE 50 MG/ML VIAL IM ONE (01:53)
[2020-12-07] MEDS ORDERED: ALPRAZolam 1 MG TAB PO ONE (03:10)
--- NOTE | 2020-12-07 03:49 | Emergency Department Report ---
ED General Adult HPI - General Chief complaint: Allergic Reaction Stated complaint: REACTION TO MEDS Time Seen by Provider: 12/07/20 02:47 Source: patient Mode of arrival: Ambulatory Limitations: No Limitations - History of Present Illness Initial comments: 25-year-old -[place]ian female patient presents with complaints of jitteriness and feeling like her skin is crawling today. Patient was discharged from the ED a few minutes before checking back in again. During her stay, patient was given Reglan, however she did not receive any Benadryl. She denies any chest pain or shortness of breath. She states she is feeling extremely anxious and that she has had a similar reaction to Reglan in the past. - Related Data Previous Rx's Medication Instructions Recorded Last Taken Type Ciprofloxacin HCl [Ciprofloxacin 500 mg PO Q12HR 7 Days #14 tab 08/15/20 Unknown Rx TAB] Naproxen [Naprosyn] 500 mg PO BID #20 tablet 08/15/20 Unknown Rx traMADoL [Ultram] 50 mg PO Q6HR PRN #7 tablet 08/15/20 Unknown Rx Dicyclomine [Bentyl] 10 mg PO QID PRN #16 capsule 12/07/20 Unknown Rx Nitrofurantoin [place]/M-Cryst 100 mg PO Q12HR #14 capsule 12/07/20 Unknown Rx [Macrobid CAP] Ondansetron [Zofran Odt] 4 mg PO Q8HR PRN #14 tab.rapdis 12/07/20 Unknown Rx Allergies Allergy/AdvReac Type Severity Reaction Status Date / Time amoxicillin Allergy Unknown Verified 12/06/20 19:32 clavulanic acid Allergy Unknown Verified 12/06/20 19:32 [From Augmentin] haloperidol [From Haldol] Allergy Unknown Verified 12/07/20 01:49 lorazepam [From Ativan] Allergy Unknown Verified 12/07/20 01:49 Penicillins Allergy Hives Verified 12/07/17 07:22 phenobarbital Allergy Unknown Verified 12/06/20 19:32 sulfamethoxazole Allergy Unknown Verified 12/06/20 19:32 [From Bactrim] trimethoprim [From Bactrim] Allergy Unknown Verified 12/06/20 19:32 metoclopramide [From Reglan] AdvReac Unknown Verified 12/07/20 01:24 antianxiety meds Allergy Unknown Uncoded 12/07/20 01:49 ED Review of Systems ROS: Stated complaint: REACTION TO MEDS Other details as noted in HPI Constitutional: denies: chills, fever Respiratory: denies: cough, shortness of breath Cardiovascular: denies: chest pain, palpitations Gastrointestinal: denies: abdominal pain, vomiting Skin: denies: rash Neurological: denies: headache, numbness, paresthesias Psychiatric: anxiety ED Past Medical Hx - Past Medical History Previous Medical History?: Yes Hx Seizures: Yes (x1 when 1yrs old) Additional medical history: gallbladder probs. pulmonary edema - Surgical History Past Surgical History?: Yes Hx Appendectomy: Yes Additional Surgical History: . Spine surgery. sinus - Social History Smoking Status: Never Smoker Substance Use Type: None - Medications Home Medications: Home Medications Medication Instructions Recorded Confirmed Last Taken Type Ciprofloxacin HCl [Ciprofloxacin 500 mg PO Q12HR 7 Days #14 tab 08/15/20 Un known Rx TAB] Naproxen [Naprosyn] 500 mg PO BID #20 tablet 08/15/20 Unknown Rx traMADoL [Ultram] 50 mg PO Q6HR PRN #7 tablet 08/15/20 Unknown Rx Dicyclomine [Bentyl] 10 mg PO QID PRN #16 capsule 12/07/20 Unknown Rx Nitrofurantoin [place]/M-Cryst 100 mg PO Q12HR #14 capsule 12/07/20 Unknown Rx [Macrobid CAP] Ondansetron [Zofran Odt] 4 mg PO Q8HR PRN #14 tab.rapdis 12/07/20 Unknown Rx ED Physical Exam - General Limitations: No Limitations General appearance: alert, in no apparent distress - Head Head exam: Present: atraumatic, normocephalic - Respiratory Respiratory exam: Present: normal lung sounds bilaterally. Absent: respiratory distress - Cardiovascular Cardiovascular Exam: Present: regular rate, normal rhythm - Extremities Exam Extremities exam: Present: full ROM - Neurological Exam Neurological exam: Present: alert, oriented X3, other (Diffuse tremors noted to all 4 limbs with shakiness to legs bilaterally) - Psychiatric Psychiatric exam: Present: normal affect, anxious - Skin Skin exam: Present: warm, dry, intact, normal color. Absent: rash ED Course Vital Signs 12/07/20 01:43 Temperature 98.3 F Pulse Rate 78 Respiratory 16 Rate Blood Pressure 119/75 O2 Sat by Pulse 100 Oximetry ED Medical Decision Making - Medical Decision Making 25-year-old -[place] female patient presents with complaints of jitteriness and feeling like her skin is crawling today. Patient was discharged from the ED a few minutes before checking back in again. During her stay, bay diane was given Reglan, however she did not receive any Benadryl. She denies any chest pain or shortness of breath. She states she is feeling extremely anxious and that she has had a similar reaction to Reglan in the past. Symptoms due to reaction to Reglan. Patient given Benadryl and Xanax and her symptoms have completely resolved. No further spastic activity or tremors noted. Patient states she is feeling well. Her vitals are normal, she is well- appearing, she is stable for discharge home. Patient to the follow-up as instructed by previous provider. Strict return precautions were discussed in detail with patient who verbalized understanding. Critical care attestation.: If time is entered above; I have spent that time in minutes in the direct care of this critically ill patient, excluding procedure time. ED Disposition Clinical Impression: Medication reaction Qualifiers: Encounter type: initial encounter Qualified Code(s): T50.905A - Adverse effect of unspecified drugs, medicaments and biological substances, initial encounter Disposition: DC-01 TO HOME OR SELFCARE Is pt being admited?: No Condition: Stable Referrals: PRIMARY CARE, [Primary Care Provider] - 3-5 Days
== END 2020-12-07 04:03 | disposition home or self-care (01) ==
LOC: ED 01:03
DX: B88.1 Tungiasis [sandflea infestation] (principal); T45.0X5A Adverse effect of antiallergic and antiemetic drugs, initial encounter; Z88.0 Allergy status to penicillin; Z88.8 Allergy status to other drugs, medicaments and biological substances; Z86.69 Personal history of other diseases of the nervous system and sense organs; Z98.890 Other specified postprocedural states; Z90.49 Acquired absence of other specified parts of digestive tract; Z79.899 Other long term (current) drug therapy; Y92.89 Other specified places as the place of occurrence of the external cause
CPT/HCPCS: 96372; 99282; J1200

== ENCOUNTER 2021-10-08 05:54 | Emergency (ER) | payer MEDICAID ==
[2021-10-08 06:01] VITALS: BP 153/86
== END 2021-10-08 07:41 | disposition left against medical advice (07) ==
LOC: ED 05:54
DX: E11.8 Type 2 diabetes mellitus with unspecified complications (principal); R11.0 Nausea; Z53.21 Procedure and treatment not carried out due to patient leaving prior to being seen by health care provider

== ENCOUNTER 2021-12-23 07:41 | Emergency (ER) | payer MEDICAID ==
[2021-12-23] MEDS ORDERED: SODIUM CHLORIDE 0.9% 1000 ML 1,000 ML IV ONE ×2 (08:24)
[2021-12-23] MEDS ORDERED: ONDANSETRON 4 MG/2 ML INJ IV ONE ×2 (08:25→10:05)
[2021-12-23] MEDS ORDERED: KETOROLAC 30 MG/1 ML INJ IV ONE (08:26)
--- NOTE | 2021-12-23 08:33 | Emergency Department Report ---
HPI - General Chief Complaint: Chest Pain Time Seen by Provider: 12/23/21 08:10 - HPI HPI: 26-year-old female with no known past medical history presents complaining of left-sided chest pain with associated nausea and vomiting as well as palpitations since last night. Patient says that her current presentation started last night at unknown time when she began to experience dull left-sided chest pain which she describes as sharp and with intermittent radiation to the left shoulder. This pain was intermittent lasting for a few minutes at a time but then resolving spontaneously each time. However, since waking up this morning, the left-sided chest pain has become constant. She is felt extremely nauseated and with multiple episodes of vomiting. She also says that she has palpitations. She denies any associated headache, fever, vision change, neck pain/stiffness, shortness of breath, cough, back pain, fevers, chills, abdominal pain, dysuria, hematuria, discharge, focal weakness, sensory changes, or any other associated complaints. She has not tried taking anything for these symptoms. There are no known aggravating or alleviating factors. The patient's LMP was 2 weeks ago and she states that she cannot possibly be the patient is fully vaccinated against COVID-19 but has not yet received a booster. ED Past Medical Hx - Past Medical History Previous Medical History?: Yes Hx Seizures: Yes (x1 when 1yrs old) Additional medical history: gallbladder probs. pulmonary edema - Surgical History Hx Appendectomy: Yes Additional Surgical History: . Spine surgery. sinus - Social History Smoking Status: Never Smoker Substance Use Type: None - Medications Home Medications: Home Medications Medication Instructions Recorded Confirmed Last Taken Type Ciprofloxacin HCl [Ciprofloxacin 500 mg PO Q12HR 7 Days #14 tab 08/15/20 Unknown Rx TAB] Naproxen [Naprosyn] 500 mg PO BID #20 tablet 08/15/20 Unknown Rx traMADoL [Ultram] 50 mg PO Q6HR PRN #7 tablet 08/15/20 Unknown Rx Dicyclomine [Bentyl] 10 mg PO QID PRN #16 capsule 12/07/20 Unknown Rx Nitrofurantoin [place]/M-Cryst 100 mg PO Q12HR #14 capsule 12/07/20 Unknown Rx [Macrobid CAP] Ondansetron [Zofran Odt] 4 mg PO Q8HR PRN #14 tab.rapdis 12/07/20 Unknown Rx Cefpodoxime Proxetil 100 mg PO BID #14 12/23/21 Unknown Rx Ondansetron [Zofran Odt] 4 mg PO Q8HR PRN #10 tab.calebdis 12/23/21 Unknown Rx ED Review of Systems ROS: Stated complaint: Heart Racing Other details as noted in HPI Comment: All other systems reviewed and negative Constitutional: denies: chills, diaphoresis, fever Eyes: denies: eye pain, vision change ENT: denies: throat pain, congestion Respiratory: denies: cough, shortness of breath Cardiovascular: chest pain, palpitations. denies: edema Gastrointestinal: nausea, vomiting. denies: abdominal pain, diarrhea, constipation Genitourinary: denies: dysuria, frequency, hematuria, discharge Musculoskeletal: denies: back pain, arthralgia Skin: denies: rash, lesions Neurological: denies: headache, weakness, numbness Hematological/Lymphatic: denies: easy bleeding Physical Exam - Physical Exam Vital Signs: Vital Signs 12/23/21 07:47 Temperature 98.6 F Pulse Rate 110 H Respiratory 16 Rate Blood Pressure 116/82 [Left] O2 Sat by Pulse 97 Oximetry Physical Exam: GENERAL: Well developed and well nourished. Disheveled appearance. No acute distress. HEAD: Normocephalic. No obvious signs of trauma. ENT: Dry mucous membranes. EYES: Extraocular movements are intact. Pupils are equal round and reactive to light bilaterally NECK: Supple. Full ROM is intact. Trachea is midline. LUNGS: Nonlabored breathing. Equal chest rise bilaterally. Clear to auscultation bilaterally. CARDIOVASCULAR: Tachycardic with regular rhythm. No murmurs or rubs. VASCULAR: Cap refill < 2 seconds. Trace edema bilaterally. ABDOMEN: Abdomen is soft and nondistended. There is some mild diffuse discomfort with palpation but no point or focal tenderness. There is no guarding or r ebound tenderness. SKIN: Skin is warm and dry NEURO: Patient is awake, alert, and oriented. 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 No focal deficits. Normal motor and sensory exam throughout. Normal speech. MUSCULOSKELETAL: No obvious deformities. No significant tenderness. Normal ROM throughout. BACK/SPINE: No midline tenderness or step-offs of the C/T/L spine. Left-sided CVA tenderness is noted. ED Course Vital Signs 12/23/21 07:47 Temperature 98.6 F Pulse Rate 110 H Respiratory 16 Rate Blood Pressure 116/82 [Left] O2 Sat by Pulse 97 Oximetry ED Medical Decision Making - Lab Data Result diagrams: 12/23/21 08:41 12/23/21 08:41 Lab Results 12/23/21 12/23/21 12/23/21 Range/Units 08:41 08:41 08:41 WBC 8.9 (4.5-11.0) K/mm3 RBC 4.23 (3.65-5.03) M/mm3 Hgb 12.0 (10.1-14.3) gm/dl Hct 37.2 (30.3-42.9) % MCV 88 (79-97) fl MCH 28 (28-32) pg MCHC 32 (30-34) % RDW 14.1 (13.2-15.2) % Plt Count 289 (140-440) K/mm3 Lymph % (Auto) 15.7 (13.4-35.0) % [place] % (Auto) 5.4 (0.0-7.3) % Eos % (Auto) 0.1 (0.0-4.3) % Baso % (Auto) 0.1 (0.0-1.8) % Lymph # (Auto) 1.4 (1.2-5.4) K/mm3 [place] # (Auto) 0.5 (0.0-0.8) K/mm3 Eos # (Auto) 0.0 (0.0-0.4) K/mm3 Baso # (Auto) 0.0 (0.0-0.1) K/mm3 Seg Neutrophils % 78.7 H (40.0-70.0) % Seg Neutrophils # 7.0 (1.8-7.7) K/mm3 Sodium (137-145) mmol/L Potassium (3.6-5.0) mmol/L Chloride (98-107) mmol/L Carbon Dioxide (22-30) mmol/L Anion Gap mmol/L BUN (7-17) mg/dL Creatinine (0.6-1.2) mg/dL Estimated GFR ml/min BUN/Creatinine Ratio % Glucose (65-100) mg/dL Lactic Acid 2.90 H* (0.7-2.0) mmol/L Calcium (8.4-10.2) mg/dL Magnesium (1.7-2.3) mg/dL Total Bilirubin (0.1-1.2) mg/dL Direct Bilirubin (0-0.2) mg/dL Indirect Bilirubin mg/dL AST (5-40) units/L ALT (7-56) units/L Alkaline Phosphatase (35-129) units/L Troponin T < 0.010 (0.00-0.029) ng/mL NT-Pro-B Natriuret Pep (0-450) pg/mL Total Protein (6.3-8.2) g/dL Albumin (3.9-5) g/dL Albumin/Globulin Ratio % Lipase (13-60) units/L HCG, Qual (Negative) Urine Color (Yellow) Urine Turbidity (Clear) Urine pH (5.0-7.0) Ur Specific [place] (1.003-1.030) Urine Protein (Negative) mg/dL Urine Glucose (UA) (Negative) mg/dL Urine Ketones (Negative) mg/dL Urine Blood (Negative) Urine Nitrite (Negative) Urine Bilirubin (Negative) Urine Urobilinogen (<2.0) mg/dL Ur Leukocyte Esterase (Negative) Urine WBC (Auto) (0.0-6.0) /HPF Urine RBC (Auto) (0.0-6.0) /HPF U Epithel Cells (Auto) (0-13.0) /HPF Urine Mucus /HPF Urine Opiates Screen Urine Methadone Screen Ur Barbiturates Screen Ur Phencyclidine Scrn Ur Amphetamines Screen U Benzodiazepines Scrn Urine Cocaine Screen U Marijuana (THC) Screen Drugs of Abuse Note 12/23/21 12/23/21 12/23/21 Range/Units 08:41 08:41 11:17 WBC (4.5-11.0) K/mm3 RBC (3.65-5.03) M/mm3 Hgb (10.1-14.3) gm/dl Hct (30.3-42.9) % MCV (79-97) fl MCH (28-32) pg MCHC (30-34) % RDW (13.2-15.2) % Plt Count (140-440) K/mm3 Lymph % (Auto) (13.4-35.0) % [place] % (Auto) (0.0-7.3) % Eos % (Auto) (0.0-4.3) % Baso % (Auto) (0.0-1.8) % Lymph # (Auto) (1.2-5.4) K/mm3 [place] # (Auto) (0.0-0.8) K/mm3 Eos # (Auto) (0.0-0.4) K/mm3 Baso # (Auto) (0.0-0.1) K/mm3 Seg Neutrophils % (40.0-70.0) % Seg Neutrophils # (1.8-7.7) K/mm3 Sodium 134 L (137-145) mmol/L Potassium 3.4 L (3.6-5.0) mmol/L Chloride 96.1 L (98-107) mmol/L Carbon Dioxide 22 (22-30) mmol/L Anion Gap 19 mmol/L BUN 8 (7-17) mg/dL Creatinine 0.7 (0.6-1.2) mg/dL Estimated GFR > 60 ml/min BUN/Creatinine Ratio 11 % Glucose 99 (65-100) mg/dL Lactic Acid 1.40 (0.7-2.0) mmol/L Calcium 8.9 (8.4-10.2) mg/dL Magnesium 1.80 (1.7-2.3) mg/dL Total Bilirubin 0.40 (0.1-1.2) mg/dL Direct Bilirubin < 0.2 (0-0.2) mg/dL Indirect Bilirubin 0.2 mg/dL AST 35 (5-40) units/L ALT 29 (7-56) units/L Alkaline Phosphatase 90 (35-129) units/L Troponin T (0.00-0.029) ng/mL NT-Pro-B Natriuret Pep 6.17 (0-450) pg/mL Total Protein 8.2 (6.3-8.2) g/dL Albumin 4.5 (3.9-5) g/dL Albumin/Globulin Ratio 1.2 % Lipase 18 (13-60) units/L HCG, Qual Negative (Negative) Urine Color (Yellow) Urine Turbidity (Clear) Urine pH (5.0-7.0) Ur Specific [place] (1.003-1.030) Urine Protein (Negative) mg/dL Urine Glucose (UA) (Negative) mg/dL Urine Ketones (Negative) mg/dL Urine Blood (Negative) Urine Nitrite (Negative) Urine Bilirubin (Negative) Urine Urobilinogen (<2.0) mg/dL Ur Leukocyte Esterase (Negative) Urine WBC (Auto) (0.0-6.0) /HPF Urine RBC (Auto) (0.0-6.0) /HPF U Epithel Cells (Auto) (0-13.0) /HPF Urine Mucus /HPF Urine Opiates Screen Urine Methadone Screen Ur Barbiturates Screen Ur Phencyclidine Scrn Ur Amphetamines Screen U Benzodiazepines Scrn Urine Cocaine Screen U Marijuana (THC) Screen Drugs of Abuse Note 12/23/21 12/23/21 12/23/21 Range/Units 11:17 Unknown Unknown WBC (4.5-11.0) K/mm3 RBC (3.65-5.03) M/mm3 Hgb (10.1-14.3) gm/dl Hct (30.3-42.9) % MCV (79-97) fl MCH (28-32) pg MCHC (30-34) % RDW (13.2-15.2) % Plt Count (140-440) K/mm3 Lymph % (Auto) (13.4-35.0) % [place] % (Auto) (0.0-7.3) % Eos % (Auto) (0.0-4.3) % Baso % (Auto) (0.0-1.8) % Lymph # (Auto) (1.2-5.4) K/mm3 [place] # (Auto) (0.0-0.8) K/mm3 Eos # (Auto) (0.0-0.4) K/mm3 Baso # (Auto) (0.0-0.1) K/mm3 Seg Neutrophils % (40.0-70.0) % Seg Neutrophils # (1.8-7.7) K/mm3 Sodium (137-145) mmol/L Potassium (3.6-5.0) mmol/L Chloride (98-107) mmol/L Carbon Dioxide (22-30) mmol/L Anion Gap mmol/L BUN (7-17) mg/dL Creatinine (0.6-1.2) mg/dL Estimated GFR ml/min BUN/Creatinine Ratio % Glucose (65-100) mg/dL Lactic Acid (0.7-2.0) mmol/L Calcium (8.4-10.2) mg/dL Magnesium (1.7-2.3) mg/dL Total Bilirubin (0.1-1.2) mg/dL Direct Bilirubin (0-0.2) mg/dL Indirect Bilirubin mg/dL AST (5-40) units/L ALT (7-56) units/L Alkaline Phosphatase (35-129) units/L Troponin T < 0.010 (0.00-0.029) ng/mL NT-Pro-B Natriuret Pep (0-450) pg/mL Total Protein (6.3-8.2) g/dL Albumin (3.9-5) g/dL Albumin/Globulin Ratio % Lipase (13-60) units/L HCG, Qual (Negative) Urine Color Yellow (Yellow) Urine Turbidity Clear (Clear) Urine pH 6.0 (5.0-7.0) Ur Specific [place] 1.019 (1.003-1.030) Urine Protein 30 mg/dl (Negative) mg/dL Urine Glucose (UA) Neg (Negative) mg/dL Urine Ketones Neg (Negative) mg/dL Urine Blood Sm (Negative) Urine Nitrite Neg (Negative) Urine Bilirubin Neg (Negative) Urine Urobilinogen 2.0 (<2.0) mg/dL Ur Leukocyte Esterase Neg (Negative) Urine WBC (Auto) 15.0 H (0.0-6.0) /HPF Urine RBC (Auto) 1.0 (0.0-6.0) /HPF U Epithel Cells (Auto) 3.0 (0-13.0) /HPF Urine Mucus 3+ /HPF Urine Opiates Screen Negative Urine Methadone Screen Negative Ur Barbiturates Screen Negative Ur Phencyclidine Scrn Negative Ur Amphetamines Screen Negative U Benzodiazepines Scrn Negative Urine Cocaine Screen Positive U Marijuana (THC) Screen Positive Drugs of Abuse Note Disclamer - EKG Data -: EKG Interpreted by Me - EKG Data 12/23/21 10:17 Sinus tachycardia. Normal axis. Normal intervals. No ectopy. No significant ST segment or T wave abnormalities. - Radiology Data Radiology results: report reviewed - Medical Decision Making 26-year-old female presenting with left-sided chest pain and palpitations with nausea and vomiting since last night. LMP was 2 weeks ago. She is afebrile and with normal vital signs other than elevated heart rate in the 110s. On physical examination, the patient appears disheveled and with dry mucous membranes. She has a nonfocal neurologic exam. She is slightly tachycardic but lungs are clear to auscultation. She has no abdominal tenderness but does have left CVA tenderness noted. We will perform very broad work-up including a full set of labs and sepsis order set with cultures, hCG test, D-dimer, serial troponins, and chest x-ray. We will obtain CTA of the chest to assess for ev idence of pulmonary embolism versus pneumonia versus Covid versus CHF versus other intrathoracic abnormality to explain the patient's presentation. We will also obtain CT of the abdomen and pelvis to assess for evidence of pyelonephritis versus kidney stone versus pancreatitis versus colitis versus other abnormality to explain the patient's presentation. We will give 2 L of IV fluids, Zofran, and 30 mg of Toradol. We will continue to monitor closely and reassess frequently. Labs reveal no significant leukocytosis or anemia. Serum hCG is negative. Chemistry panel is still pending. UDS is positive for marijuana and cocaine Urinalysis reveals findings consistent with UTI I went to reassess the patient at 10 AM and she states that her nausea is slightly better but the pain is unchanged from prior. Her tachycardia has now resolved. I spoke with her regarding the results of the UDS and asked whether the patient uses cocaine and she denied any use of cocaine recently or ever. She also denies any use of substances other than marijuana. The patient's heart score is 1. CTA of the chest shows no evidence of PE with clear lung turner bilaterally. CT of the abdomen pelvis shows no acute abnormalities. Repeat troponin is negative. On reassessment at 12:35 PM, the patient reports that she feels symptomatically improved and no longer has any symptoms and wants to go home. I discussed with her the importance of disclosing her use of cocaine given that it can cause chest pain and can also cause heart attacks even at a young age. I advised her to refrain from further use of cocaine and should her symptoms worsen or should she develop new health concerns she should return to the emergency department immediately. Patient expressed understanding agreement with this plan of care. We will also prescribe 7 days of Cefpodoxime 100 mg twice daily for UTI. Critical care attestation.: If time is entered above; I have spent that time in minutes in the direct care of this critically ill patient, excluding procedure time. ED Disposition Clinical Impression: Cocaine use disorder, UTI (urinary tract infection), Dehydration, Hypokalemia, Cocaine intoxication Disposition: 01 HOME / SELF CARE / HOMELESS Is pt being admited?: No Condition: Stable Instructions: Stimulant Use Disorder-Cocaine, Hypokalemia, Dehydration, Adult, [id number], Urinary Tract Infection, Adult Additional Instructions: Your labs show that your potassium level was low. You should follow-up for repeat labs. Your labs also show that you have a urinary tract infection for which you have been prescribed an antibiotic. You should follow-up with a urologist given your history of chronic and recurrent urinary tract infections. Your urine drug test was positive for marijuana and cocaine. Cocaine can directly cause chest pain and can indirectly cause chest pain by leading to heart attack. Therefore cocaine should be avoided indefinitely. Return for any significantly worsening symptoms, inability to tolerate anything by mouth, or for any other new health concerns. Prescriptions: Cefpodoxime Proxetil 100 mg PO BID #14 Ondansetron [Zofran Odt] 4 mg PO Q8HR PRN #10 tab.rapdis PRN Reason: Nausea And Vomiting Referrals: YESSI JEFFRIES MD [Primary Care Provider] - 3-5 Days PROMISE SELF MD [Staff Physician] - 3-5 Days Heart Score - HEART Score History: Slightly suspicious EKG: Non-specific Age: < 45 Risk factors: No known risk factors Troponin: < normal limit HEART Score: 1 - EKG Read Time Time EKG Completed: 07:59 EKG Read Time: 08:11
[2021-12-23 09:28] LABS: Basophils % (Auto) 0.1 % (0.0-1.8); Eosinophils % (Auto) 0.1 % (0.0-4.3); Hematocrit 37.2 % (30.3-42.9); Lymphocytes # (Auto) 1.4 K/mm3 (1.2-5.4); Lymphocytes % (Auto) 15.7 % (13.4-35.0); Mean Corpuscular HGB Conc 32 % (30-34); Mean Corpuscular Volume 88 fl (79-97); Monocytes # (Auto) 0.5 K/mm3 (0.0-0.8); Monocytes % (Auto) 5.4 % (0.0-7.3); Platelet Count 289 K/mm3 (140-440); Red Blood Count 4.23 M/mm3 (3.65-5.03); Red Cell Distribution Width 14.1 % (13.2-15.2)
[2021-12-23 09:47] LABS: Bilirubin,Urine NEG (Negative); Blood,Urine SM (Negative); Color,Urine Yellow (Yellow); Mucus,Urine 3+ /HPF
[2021-12-23 09:52] LABS: Amphetamine Screen,Urine Negative; Benzodiazepines Screen,Urine Negative; Methadone Screen,Urine Negative; Opiate Screen,Urine Negative
[2021-12-23 09:53] LABS: Alanine Aminotransferase 29 units/L (7-56); Albumin 4.5 g/dL (3.9-5); Blood Urea Nitrogen 8 mg/dL (7-17); Calcium 8.9 mg/dL (8.4-10.2); Hemolysis Index 8
[2021-12-23] MEDS ORDERED: cefTRIAXone/NS 2 GM/100 ML 2 GM/100 ML BAG IV ONE (10:05)
[2021-12-23] MEDS ORDERED: MORPHINE 4 MG/1 ML INJ IV ONE (10:06)
[2021-12-23] MEDS ORDERED: POTASSIUM CHLORIDE ER 20 MEQ TAB PO ONE (10:06)
[2021-12-23 10:20] LABS: BUN/Creatinine Ratio 11; Bilirubin,Direct < 0.2 mg/dL (0-0.2)
--- NOTE | 2021-12-23 10:22 | XRay Report ---
CHEST 1 VIEW 12/23/2021 9:14 AM INDICATION / CLINICAL INFORMATION: chest pain. COMPARISON: None available. FINDINGS: SUPPORT DEVICES: None. HEART / MEDIASTINUM: No significant abnormality. LUNGS / PLEURA: No significant pulmonary or pleural abnormality. No pneumothorax. ADDITIONAL FINDINGS: Hardware throughout the spine IMPRESSION: 1. No acute findings. Signer Name: Andre Mitchell MD Signed: 12/23/2021 10:17 AM Workstation Name: [email or web address]
[2021-12-23 10:36] LABS: Cannabinoid Screen,Urine Positive; Cocaine Screen,Urine Positive
--- NOTE | 2021-12-23 12:04 | Cat Scan Report ---
CTA CHEST WITH CONTRAST INDICATION : CP, palps, assess for PE OMNI 350 100 ML. TECHNIQUE: Axial imaging performed through the chest, with contrast bolus timing set to maximize opa cification of the pulmonary arteries. Sagittal and coronal reformatted images. 3-plane MIP reformatte d images were obtained. All CT scans at this location are performed using CT dose reduction for ALAR A by means of automated exposure control. Omnipaque 350 100 mL of intravenous contrast administered. COMPARISON: None FINDINGS: Bolus: Contrast bolus timing is adequate. PTE: Resolution is limited due to streak artifact from posterior Teresa rods. No pulmonary embol us is detected. Mediastinum: Heart and great vessels appear normal. No significant coronary artery calcifications. N o pathologic mediastinal adenopathy. Lungs: Lungs are clear. Bones: Scoliosis secured by Teresa rods. No acute bony abnormality or bone lesion. Upper abdomen: Limited imaging of the upper abdomen shows nothing acute. IMPRESSION: Negative for PTE. Clear lungs. Signer Name: Amador Newman Jr, MD Signed: 12/23/2021 11:59 AM Workstation Name: [id number]
--- NOTE | 2021-12-23 12:31 | Cat Scan Report ---
CT ABDOMEN AND PELVIS WITH CONTRAST INDICATION / CLINICAL INFORMATION: Left CVA tend, diffuse abd discomfort contrast in bladder due to patient not wanting to continue scan until MD suggested she finish OMNI 350 100ML . TECHNIQUE: Axial CT images were obtained through the abdomen and pelvis after IV contrast. All CT sc ans at this location are performed using CT dose reduction for ALARA by means of automated exposure c ontrol. COMPARISON: CT dated 08/15/20 FINDINGS: Moderate streak artifact from thoracolumbar spinal fusion. LOWER CHEST: No significant abnormality. LIVER: No significant abnormality. GALLBLADDER: Interval cholecystectomy. BILE DUCTS: No significant abnormality. PANCREAS: No significant abnormality. SPLEEN: No significant abnormality. ADRENALS: No significant abnormality. RIGHT KIDNEY / URETER: No significant abnormality. LEFT KIDNEY / URETER: No significant abnormality. STOMACH / SMALL BOWEL: No significant abnormality. COLON: No significant abnormality. APPENDIX: Not visualized. PERITONEUM: No free fluid. No free air. No fluid collection. LYMPH NODES: No significant adenopathy. AORTA / ARTERIES: No significant abnormality. IVC / VEINS: No significant abnormality. URINARY BLADDER: No significant abnormality. REPRODUCTIVE ORGANS: 2.5 cm physiologic cyst of the left ovary. Small right-sided Thomson duct cyst. ADDITIONAL FINDINGS: None. SKELETAL SYSTEM: Thoracolumbar spinal fusion hardware is unchanged. No acute osseous abnormality. IMPRESSION: 1. No acute process in the abdomen or pelvis. 2. Interval cholecystectomy. Signer Name: Rosa Lal MD Signed: 12/23/2021 12:25 PM Workstation Name: [id number]
[2021-12-23 13:25] VITALS: BP 131/80
--- NOTE | 2021-12-23 17:40 | Electrocardiograph Report ---
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
== END 2021-12-23 13:25 | disposition home or self-care (01) ==
LOC: ED 07:41
DX: E86.0 Dehydration (principal); N39.0 Urinary tract infection, site not specified; E87.6 Hypokalemia; F14.129 Cocaine abuse with intoxication, unspecified; Z98.890 Other specified postprocedural states; Z88.0 Allergy status to penicillin; Z88.8 Allergy status to other drugs, medicaments and biological substances; Z88.1 Allergy status to other antibiotic agents; Z79.899 Other long term (current) drug therapy; R10.9 Unspecified abdominal pain; Z90.49 Acquired absence of other specified parts of digestive tract
CPT/HCPCS: 36415; 71045; 71275; 74177; 80048; 80076; 80307; 81001; 82140; 83690; 83735; 83880; 84484; 84703; 85025; 85379; 87040; 87086; 93005; 93010; 96361; 96365; 96375; 99285; J0696; J1885; J2270; J2405; J7030; Q9967; Q0162

== ENCOUNTER 2022-02-15 21:24 | Emergency (ER) | payer MEDICAID ==
[2022-02-16] MEDS ORDERED: oxyCODONE /ACETAMINOPHEN 5-325MG TAB PO ONE (03:03)
[2022-02-16] MEDS ORDERED: LIDOCAINE VISCOUS 2% 15 ML ORAL LIQD MM NR (03:15)
--- NOTE | 2022-02-16 04:07 | Emergency Department Report ---
ED General Adult HPI - General Chief complaint: Extremity Injury, Lower Stated complaint: HAND CRAMPINH UP/NECK PAIN Time Seen by Provider: 02/16/22 03:53 Source: patient, EMS Mode of arrival: Stretcher Limitations: No Limitations - History of Present Illness Initial comments: 26-year-old female [facility] emergency department complaining of follow-up for wound medication dressing worsening pain to the left lower lip and tooth region that is now radiating to her jaw down her neck and upper face off and on. Pain is worse with palpation, eating/ chewing. -: Gradual, week(s) (1) Location: face, mouth Severity scale (0 -10): 8 Quality: dull Consistency: constant Associated Symptoms: denies: cough, malaise, nausea/vomiting, shortness of breath, syncope, weakness - Related Data Previous Rx's Medication Instructions Recorded Last Taken Type Ciprofloxacin HCl [Ciprofloxacin 500 mg PO Q12HR 7 Days #14 tab 08/15/20 Unknown Rx TAB] Naproxen [Naprosyn] 500 mg PO BID #20 tablet 08/15/20 Unknown Rx traMADoL [Ultram] 50 mg PO Q6HR PRN #7 tablet 08/15/20 Unknown Rx Dicyclomine [Bentyl] 10 mg PO QID PRN #16 capsule 12/07/20 Unknown Rx Nitrofurantoin [place]/M-Cryst 100 mg PO Q12HR #14 capsule 12/07/20 Unknown Rx [Macrobid CAP] Ondansetron [Zofran Odt] 4 mg PO Q8HR PRN #14 tab.rapdis 12/07/20 Unknown Rx Cefpodoxime Proxetil 100 mg PO BID #14 12/23/21 Unknown Rx Ondansetron [Zofran Odt] 4 mg PO Q8HR PRN #10 tab.rapdis 12/23/21 Unknown Rx Chlorhexidine Mouthwash [Peridex] 15 ml MM BID #1 bottle 02/16/22 Unknown Rx Ketorolac [Toradol] 10 mg PO Q6H PRN #15 tablet 02/16/22 Unknown Rx Lidocaine Viscous 2% 5 ml MM Q3H PRN #120 udc 02/16/22 Unknown Rx Allergies Allergy/AdvReac Type Severity Reaction Status Date / Time amoxicillin Allergy Unknown Verified 12/23/21 07:50 clavulanic acid Allergy Unknown Verified 12/23/21 07:50 [From Augmentin] haloperidol [From Haldol] Allergy Unknown Verified 12/23/21 07:50 lorazepam [From Ativan] Allergy Unknown Verified 12/23/21 07:50 Penicillins Allergy Hives Verified 12/23/21 07:50 phenobarbital Allergy Unknown Verified 12/23/21 07:50 sulfamethoxazole Allergy Unknown Verified 12/23/21 07:50 [From Bactrim] trimethoprim [From Bactrim] Allergy Unknown Verified 12/23/21 07:50 metoclopramide [From Reglan] AdvReac Unknown Verified 12/23/21 07:50 antianxiety meds Allergy Unknown Uncoded 12/23/21 07:50 ED Review of Systems ROS: Stated complaint: HAND CRAMPINH UP/NECK PAIN Other details as noted in HPI Comment: All other systems reviewed and negative ED Past Medical Hx - Past Medical History Previous Medical History?: Yes Hx Seizures: Yes (x1 when 1yrs old) Additional medical history: gallbladder probs. pulmonary edema - Surgical History Past Surgical History?: Yes Hx Appendectomy: Yes Additional Surgical History: . Spine surgery. sinus - Social History Smoking Status: Never Smoker Substance Use Type: None - Medications Home Medications: Home Medications Medication Instructions Recorded Confirmed Last Taken Type Ciprofloxacin HCl [Ciprofloxacin 500 mg PO Q12HR 7 Days #14 tab 08/15/20 Unknown Rx TAB] Naproxen [Naprosyn] 500 mg PO BID #20 tablet 08/15/20 Unknown Rx traMADoL [Ultram] 50 mg PO Q6HR PRN #7 tablet 08/15/20 Unknown Rx Dicyclomine [Bentyl] 10 mg PO QID PRN #16 capsule 12/07/20 Unknown Rx Nitrofurantoin [place]/M-Cryst 100 mg PO Q12HR #14 capsule 12/07/20 Unknown Rx [Macrobid CAP] Ondansetron [Zofran Odt] 4 mg PO Q8HR PRN #14 tab.rapdis 12/07/20 Unknown Rx Cefpodoxime Proxetil 100 mg PO BID #14 12/23/21 Unknown Rx Ondansetron [Zofran Odt] 4 mg PO Q8HR PRN #10 tab.rapdis 12/23/21 Unknown Rx Chlorhexidine Mouthwash [Peridex] 15 ml MM BID #1 bottle 02/16/22 Unknown Rx Ketorolac [Toradol] 10 mg PO Q6H PRN #15 tablet 02/16/22 Unknown Rx Lidocaine Viscous 2% 5 ml MM Q3H PRN #120 udc 02/16/22 Unknown Rx ED Physical Exam - General Limitations: No Limitations General appearance: alert, in no apparent distress - Head Head exam: Present: atraumatic, normocephalic - Expanded Head Exam Expanded 1 - Lips cold sores at this region. Worsening local swelling - Eye Eye exam: Present: normal appearance - ENT ENT exam: Present: mucous membranes moist, other (Significant dental erosion. Pain to the left mandible region with palpation. No tenderness over the parotid gland. Normal Dawson's and Stensen's duct. Pharynx is clear airway patent. Tenderness along the adjacent eroded dentition. Also has a) - Expanded ENT Exam Expanded 1 - Other (Pain redness mild edema to this region. Eversion testing indentation in this region is noted. Heavy plaque throughout the ORAL cavity) - Neck Neck exam: Present: normal inspection, lymphadenopathy - Respiratory Respiratory exam: Present: normal lung sounds bilaterally. Absent: respiratory distress - Cardiovascular Cardiovascular Exam: Present: regular rate, normal rhythm. Absent: systolic murmur, diastolic murmur, rubs, gallop - GI/Abdominal GI/Abdominal exam: Present: soft, normal bowel sounds - Extremities Exam Extremities exam: Present: normal inspection - Back Exam Back exam: Present: normal inspection - Neurological Exam Neurological exam: Present: alert, oriented X3 - Psychiatric Psychiatric exam: Present: normal affect, normal mood - Skin Skin exam: Present: warm, dry, intact, normal color. Absent: rash ED Course Vital Signs 02/15/22 22:34 Temperature 98.2 F Pulse Rate 96 H Respiratory 16 Rate Blood Pressure 137/85 [Right] O2 Sat by Pulse 98 Oximetry Critical care attestation.: If time is entered above; I have spent that time in minutes in the direct care of this critically ill patient, excluding procedure time. ED Disposition Clinical Impression: Infected dental caries, Aphthous ulcer Disposition: HOME / SELF CARE / HOMELESS Is pt being admited?: No Does the pt Need Aspirin: No Condition: Stable Instructions: Canker Sores, Oral Ulcers, Preventive Dental Care, Adult Prescriptions: Lidocaine Viscous 2% 5 ml MM Q3H PRN #120 udc PRN Reason: Pain, Moderate (4-6) Chlorhexidine Mouthwash [Peridex] 15 ml MM BID #1 bottle Ketorolac [Toradol] 10 mg PO Q6H PRN #15 tablet PRN Reason: Pain Referrals: PRIMARY CARE, [Primary Care Provider] - 3-5 Days [facility] [Provider Group] - 3-5 Days
[2022-02-16 04:36] VITALS: BP 133/72
== END 2022-02-16 04:36 | disposition home or self-care (01) ==
LOC: ED 21:24
DX: K02.9 Dental caries, unspecified (principal); K12.0 Recurrent oral aphthae; Z88.1 Allergy status to other antibiotic agents; Z88.8 Allergy status to other drugs, medicaments and biological substances; Z88.2 Allergy status to sulfonamides; Z90.89 Acquired absence of other organs
CPT/HCPCS: 99283